=== PATIENT | male | born 1980 | race Caucasian/White ===

== ENCOUNTER 2018-10-24 17:49 | Inpatient (IN) | payer SELFPAY ==
[~2018-10-24] VITALS: Ht 170.2 cm; Wt 56.4 kg
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
[2018-10-24 18:44] LABS: BASO # 0.1 x10^3/uL (0.0-0.2); BASO % 1 % (0-3); EOS % 0 % (0-3); HEMATOCRIT 44.4 % (39.0-53.0); LYMPH # 1.6 x10^3/uL (1.0-4.8); LYMPH % 18 % (24-48); MEAN CORPUSCULAR HEMOGLOBIN 31 pg (25-35); MEAN CORPUSCULAR HGB CONC 34 g/dL (31-37); MEAN CORPUSCULAR VOLUME 92 fL (79-100); MONO # 0.9 x10^3/uL (0.0-1.1); MONO % 10 % (0-9); NEUT # 6.5 x10^3uL (1.8-7.7); NEUT % 72 % (31-73); PLATELET COUNT 346 x10^3/uL (140-400); RED BLOOD COUNT 4.81 x10^6/uL (4.30-5.70); RED CELL DISTRIBUTION WIDTH 13.4 % (11.5-14.5); WHITE BLOOD COUNT 9.1 x10^3/uL (4.0-11.0)
[2018-10-24 19:08] LABS: ALBUMIN 4.3 g/dL (3.4-5.0); CALCIUM 9.2 mg/dL (8.5-10.1); CREATININE 1.1 mg/dL (0.7-1.3); DIRECT BILIRUBIN 0.3 mg/dL (0.0-0.2); GFR 77.1; MAGNESIUM 2.4 mg/dL (1.8-2.4); TOTAL BILIRUBIN 2.1 mg/dL (0.2-1.0); TOTAL PROTEIN 7.6 g/dL (6.4-8.2)
[2018-10-24 19:10] LABS: POTASSIUM 2.6 mmol/L (3.5-5.1)
--- NOTE | 2018-10-24 19:25 | RAD ---
Examination: CT HEAD AND CERVICAL SPINE WO History: PT UNRESPONSIVE. SMALL ABRASION ON LEFT FOREHEAD Comparison/Correlation: None Findings: Axial images of the head and cervical spine were obtained. Sagittal and coronal reformatted images of the cervical spine were provided. Ventricles are normal size. No intracranial hemorrhage, midline shift, or mass effect. Globes and optic nerves are unremarkable. Patchy opacification of visualized paranasal sinuses noted. No depressed skull fracture. [place]-white matter differentiation is normal. Alignment of the cervical spine is normal. No fracture or bone destruction. Atlantoaxial joint degenerative remodeling is present. Slight C4-5 disc space narrowing is present. No significant degenerative change. Neural foramina are patent. Soft tissues of neck are normal. Impression: No intracranial hemorrhage. No malalignment of the cervical spine. No fracture. Electronically signed by: Terry Hill MD (10/24/2018 7:20 PM) [facility]
[2018-10-24 19:49] LABS: BARBITURATES NEG (NEG); BENZODIAZEPINES POS (NEG); CANNABINOIDS NEG (NEG); COCAINE NEG (NEG); METHADONE NEG (NEG); OPIATES NEG (NEG); PHENCYCLIDINE NEG (NEG)
[2018-10-24 19:50] LABS: AMPHETAMINE/METHAMPHETAMINE POS (NEG)
[2018-10-24 19:52] LABS: SEDIMENTATION RATE 2 (0-15)
[2018-10-24] MEDS ORDERED: ONDANSETRON PF 4 MG/2 ML VIAL. IV PRN (20:15)
[2018-10-24 20:28] LABS: BACTERIA,URINE 0 /HPF (0-FEW); BILIRUBIN,URINE NEG (NEG); CLARITY,URINE HAZY; COLOR,URINE YELLOW; GLUCOSE,URINE NEG (NEG); NITRITE,URINE NEG (NEG); RBC,URINE OCC /HPF (0-2); UROBILINOGEN,URINE 0.2 mg/dL (0.2 mg/dL)
[2018-10-24 20:29] LABS: AMORPHOUS SEDIMENT,UR PRESENT /HPF
[2018-10-24] MEDS: POTASSIUM CHLORIDE 20MEQ 100 ML IV SCH ×2 (20:50→23:02)
[2018-10-24] MEDS: IV RINGERS SOLUTION,LACTATED 1,000 ML IV SCH (20:51)
[2018-10-24] MEDS: LORazepam 2 MG/ML VIAL IV SCH (21:03)
[2018-10-24] MEDS ORDERED: LORazepam 2 MG/ML VIAL IV ONE (21:30)
[2018-10-24] MEDS ORDERED: diphenhydrAMINE 50 MG/ML VIAL IVP ONE (21:30)
[2018-10-24] MEDS: OLANZapine IM 10 MG VIAL. IM ONE (21:43)
[2018-10-24 22:10] VITALS: BP 103/50
[2018-10-24 23:00] VITALS: BP 102/52
[2018-10-25] VITALS (24 sets, daily range): BP systolic 96–145; BP diastolic 44–76
--- NOTE | 2018-10-25 00:21 | RAD ---
Examination: PORTABLE CHEST 1V History: FOUND UNRESPONSIVE, NO NAME Comparison/Correlation: None Findings: Portable upright frontal view chest was obtained. Heart size and pulmonary vasculature are normal. No infiltrate or effusion. No pneumothorax. Bony structures are unremarkable. Impression: No active disease. Electronically signed by: Terry Hill MD (10/25/2018 12:16 AM) [facility]
[2018-10-25] MEDS: OLANZapine IM 10 MG VIAL. IM ONE (00:28)
[2018-10-25] MEDS ORDERED: HALOPERIDOL LACT 5 MG/ML VIAL. IM PRN (01:30)
[2018-10-25] MEDS ORDERED: chlordiazePOXIDE HCL 25 MG CAPSULE PO PRN (01:30)
[2018-10-25] MEDS ORDERED: diphenhydrAMINE 50 MG/ML VIAL IVP PRN (01:30)
[2018-10-25] MEDS ORDERED: LORazepam 2 MG/ML VIAL IV PRN (01:30)
[2018-10-25] MEDS: IV RINGERS SOLUTION,LACTATED 1,000 ML IV SCH (01:37)
[2018-10-25] MEDS: LORazepam 2 MG/ML VIAL IV PRN ×9 (01:45→22:30)
--- NOTE | 2018-10-25 05:49 | EKG ---
[address] [address] Test Date: 2018-10-24 Test Time: 18:15:08 Pat Name: MARTITA LOPEZ Department: Room: ICU02 1 Gender: M Manager Employment: : 1980 Requested By: RHINA YOO Order Number: [id number] Reading MD: Jorge L Rivas MD Measurements Intervals [place] Rate: 62 P: -19 KS: 146 QRS: 65 QRSD: 128 T: 60 QT: 456 QTc: 465 Interpretive Statements SINUS RHYTHM CONSIDER LVH Electronically Signed On 10-31-2018 9:17:14 THROAT CUTTER by Jorge L Rivas MD
[2018-10-25 06:32] LABS: BASO # 0.1 x10^3/uL (0.0-0.2); BASO % 1 % (0-3); EOS # 0.1 x10^3/uL (0.0-0.7); EOS % 1 % (0-3); HEMATOCRIT 41.1 % (39.0-53.0); HEMOGLOBIN 13.9 g/dL (13.0-17.5); LYMPH # 1.5 x10^3/uL (1.0-4.8); LYMPH % 21 % (24-48); MEAN CORPUSCULAR HEMOGLOBIN 32 pg (25-35); MEAN CORPUSCULAR HGB CONC 34 g/dL (31-37); MEAN CORPUSCULAR VOLUME 93 fL (79-100); MONO # 0.7 x10^3/uL (0.0-1.1); MONO % 10 % (0-9); NEUT # 4.7 x10^3uL (1.8-7.7); NEUT % 67 % (31-73); PLATELET COUNT 308 x10^3/uL (140-400); RED BLOOD COUNT 4.43 x10^6/uL (4.30-5.70); RED CELL DISTRIBUTION WIDTH 13.3 % (11.5-14.5); WHITE BLOOD COUNT 6.9 x10^3/uL (4.0-11.0)
[2018-10-25 06:44] LABS: CALCIUM 8.6 mg/dL (8.5-10.1); CREATININE 0.9 mg/dL (0.7-1.3); GFR 94.4; POTASSIUM 3.6 mmol/L (3.5-5.1)
[2018-10-25] MEDS: POTASSIUM CL 40MEQ IN 0.9%NACL 1,000 ML IV SCH ×3 (07:33→17:26)
[2018-10-25] MEDS: LORazepam 2 MG/ML VIAL IV SCH ×4 (08:36→20:51)
[2018-10-25] MEDS ORDERED: POTASSIUM CHLORIDE 20MEQ 100 ML IV SCH (09:00)
[2018-10-25] MEDS ORDERED: MVI, ADULT NO.4 WITH VIT K 10 ML, FOLIC ACID INJ 1 MG, THIAMINE INJ 100 MG in IV NORMAL... IV SCH ×4 (09:00)
[2018-10-25] MEDS: chlordiazePOXIDE HCL 25 MG CAPSULE PO PRN ×2 (13:01→21:27)
--- NOTE | 2018-10-25 17:47 | HP ---
ADMIT DATE: 10/25/2018 HISTORY OF PRESENT ILLNESS: The patient is a 38-year-old male patient, who presented to the Emergency Room with altered mental status. He was referred by [place] [employer]. He was acting confused, fighting police. He appeared to be under influence of illicit drugs. He had bite greene on his tongue and lips. No ID was found on the subject by police and press tender star signal. The patient was agitated, fighting, required intramuscular Versed 5 mg for transport by paramedics, on arrival he moves all extremities and across reacts to noxious stimuli. He does have a smell of alcohol intoxicant and agitated. He was evaluated in the Emergency Room and apparently was found to have severe hypokalemia, serum potassium of only 2.6. His blood alcohol level was high at 261. He also was found positive for benzodiazepine, amphetamine, methamphetamine, and was admitted to Intensive Care Unit. PAST MEDICAL HISTORY: Unremarkable. Apparently, he has schizophrenia. He has alcohol and drug abuse. FAMILY HISTORY: Unobtainable. ALLERGIES: Unobtainable. MEDICATION: Also unknown. PHYSICAL EXAMINATION: GENERAL: On arrival to the Emergency Room, he was apparently agitated, required Versed to be transported to the Emergency Room and was clearly intoxicated. VITAL SIGNS: His heart rate was 67, blood pressure was 108/61, temperature was 96.5, respiratory rate 12, and oxygen saturation was 98% on room air. HEENT: The patient was generally normocephalic, atraumatic. He does have bite greene on his tongue and lips. Bilateral external ears are normal. The oropharynx is moist. NECK: Supple, with no lymphadenopathy or thyromegaly. HEART: Showed tachycardia with normal first and second heart sounds. LUNGS: Clear. No crepitation or rhonchi. ABDOMEN: Scaphoid, soft, nontender. NEUROLOGIC: He was minimally responsive to noxious stimuli. EXTREMITIES: Moves his extremities spontaneously, but does not respond to verbal stimuli. He was confused or understand verbal response and was acting postictal. LABORATORY DATA: Showed that his white cell count was 9100, hemoglobin 15, hematocrit 44, MCV 92, and platelet count 346,000. His chemistry showed a serum sodium 140, potassium 2.6, chloride 100, bicarbonate 24, anion gap of 16, BUN 22, creatinine 1.1, estimated GFR was 77 mL per minute. His glucose was 72, calcium was 9.2, magnesium 2.4. Total bilirubin 2.1. AST, ALT, alkaline phosphatase were normal. His CK was 220. Troponin I was less than 0.017. Total protein was 7.6, albumin was 4.3. Serum lipase was 57. TSH was 1.578. His prothrombin time was 10.2, INR of 1, aPTT was 27. D-dimer was 0.45. Urinalysis was essentially unremarkable and was grossly negative. Toxic screen was positive for amphetamine, methamphetamine, benzodiazepine and alcohol. His blood alcohol level was 261,000. CT scan of the head and cervical spine showed there is no intracranial hemorrhage. Normal alignment of cervical spine, no fracture. His chest x-ray showed that he has no evidence of active disease. ASSESSMENT AND PLAN: The patient was continued on IV fluid and banana bag together with alcohol withdrawal protocol. Will replenish his potassium and follow all his labs tomorrow morning. SANDRA LANDRUM MD DR: BHASKAR/julio JOB#: [id number] / [id number]
[2018-10-25] MEDS ORDERED: NICOTINE 21MG PATCH. TD SCH (21:00)
--- NOTE | 2018-10-25 23:02 | PN ---
DATE: 10/25/2018 SUBJECTIVE: The patient continued to be encephalopathic. He does respond occasionally, difficult to understand. OBJECTIVE: GENERAL: On examining him, he was resting flat in bed, in no apparent respiratory distress. No pallor, jaundice, cyanosis, or thyromegaly. No jugular venous distension. No lower limb edema. VITAL SIGNS: His heart rate was 60, blood pressure 121/67, temperature was 96.6, respiratory rate was 20, and oxygen saturation was 96%. The rest of clinical examination is stable, has not really changed. His intake was 1200, output was 1200. LABORATORY DATA: As of this morning, his white cell count was 6900, hemoglobin 13.9, hematocrit 41, MCV 93, and platelet count 308,000. His chemistry showed a serum sodium 140, potassium 3.6, chloride 104, bicarbonate 21, anion gap of 15, BUN 22, creatinine 0.9 mg/dL. His estimated GFR was 94 mL per minute. His glucose was 45, calcium was 8.6. ASSESSMENT: This is a 38-year-old male patient who was admitted with altered mental status likely due to polysubstance abuse. His blood alcohol level was 261. His toxic screen was positive also for methamphetamine, amphetamine, and benzodiazepine. PLAN: To continue with IV fluid. Continue to monitor his labs and continue with alcohol withdrawal protocol. SANDRA LANDRUM MD DR: BHASKAR/julio JOB#: [id number] / [id number]
[2018-10-26] MEDS: LORazepam 2 MG/ML VIAL IV PRN ×3 (00:17→01:40)
== END 2018-10-26 03:00 | disposition left against medical advice (07) | DRG 918 ==
LOC: ER 17:49 → ICU 20:53 → EDBD 20:53
PROVIDERS: ADMIT Internal Medicine; ATTEND Internal Medicine
DX: T43.621A Poisoning by amphetamines, accidental (unintentional), initial encounter (principal); G93.40 Encephalopathy, unspecified; E87.6 Hypokalemia; F20.9 Schizophrenia, unspecified; Y90.8 Blood alcohol level of 240 mg/100 ml or more; F10.20 Alcohol dependence, uncomplicated; Z53.21 Procedure and treatment not carried out due to patient leaving prior to being seen by health care provider; Y92.89 Other specified places as the place of occurrence of the external cause
CPT/HCPCS: 36415; 51702; 70450; 71045; 72125; 80048; 80076; 80307; 81001; 82550; 83690; 83735; 83880; 84443; 84484; 85025; 85379; 85610; 85651; 85730; 87086; 87641; 93005; 96374; 96375; 99406; G0480; J1200; J1630; J2060; J3480; J3490; J7120; 99285-25; J7030